=== PATIENT | female | born 1965 | race Two or more races ===

== ENCOUNTER 2022-09-19 08:15 | Inpatient (IN) | payer OTHER ==
[~2022-09-19] VITALS: Ht 157.5 cm; Wt 59.0 kg
[2022-09-19] MEDS ORDERED: SYNTHROID100 MCG PO (11:08)
[2022-09-19] MEDS ORDERED: COZAAR25 MG PO (11:08)
[2022-09-19] MEDS ORDERED: ATORVASTATIN CA20 MG PO (11:08)
[2022-09-19] MEDS ORDERED: MAGNESIUM PO (11:09)
[2022-09-25] MEDS ORDERED: FOLINIC-PLUS C1 EACH (08:35)
[2022-09-25] MEDS ORDERED: PROVENTIL HFA6.7 GM (08:36)
[2022-09-25] MEDS ORDERED: MAGNESIUM200 MG (08:36)
[2022-09-25] MEDS ORDERED: ATORVASTATIN CA20 MG (08:37)
== END 2022-09-27 11:03 | disposition home or self-care (01) | DRG 743 ==
LOC: OB/GYN 09-24 08:15 → O/R 09-24 10:30 → OB/GYN 09-24 11:00
PROVIDERS: ADMIT Obstetrics & Gynecology; ATTEND Obstetrics & Gynecology
PROC: 0UT70ZZ Resection of Bilateral Fallopian Tubes, Open Approach (ICD-10-PCS; 2022-09-24)
PROC: 0UT20ZZ Resection of Bilateral Ovaries, Open Approach (ICD-10-PCS; 2022-09-24)
PROC: 0UT90ZZ Resection of Uterus, Open Approach (ICD-10-PCS; principal; 2022-09-24 11:00)
DX: D25.1 Intramural leiomyoma of uterus (principal); N72 Inflammatory disease of cervix uteri; N84.0 Polyp of corpus uteri; D27.1 Benign neoplasm of left ovary; Z20.822 Contact with and (suspected) exposure to COVID-19